=== PATIENT | male | born 1990 | race Two or more races ===

== ENCOUNTER 2020-03-28 16:18 | Emergency (ER) | payer MEDICAID ==
[~2020-03-28] VITALS: Ht 180.3 cm; Wt 109.0 kg
[2020-03-28 16:45] VITALS: BP 119/92
[2020-03-28] MEDS ORDERED: ASPIRIN/ACETAMINOPHEN/CAFFEINE 250/250/65MG TABLET PO STA (17:06)
[2020-03-28] MEDS ORDERED: CEFTRIAXONE SODIUM 250 MG/VIAL IM ONE (17:15)
[2020-03-28] MEDS ORDERED: AZITHROMYCIN 500 MG TABLET PO ONE (17:15)
[2020-03-28] MEDS ORDERED: LIDOCAINE HCL 1% 20ML VIAL (Pyxis) INJ INFIL ONE (17:45)
[2020-03-28 18:02] LABS: CLARITY URINE CLOUDY (CLEAR); COLOR URINE YELLOW (YELLOW); KETONES URINE TRACE (NEGATIVE); LEUKOCYTE ESTERASE URINE 3+ (NEGATIVE); NITRITE URINE NEGATIVE (NEGATIVE); OCCULT BLOOD URINE 1+ (NEGATIVE); PH URINE 6.5 (4.5-8.0); PROTEIN URINE TRACE (NEGATIVE)
[2020-03-28] MEDS ORDERED: DIPHENHYDRAMINE 25MG CAPSULE PO ONE (19:15)
== END 2020-03-28 19:39 | disposition home or self-care (01) ==
LOC: ER 16:18
DX: N34.2 Other urethritis (principal); G43.909 Migraine, unspecified, not intractable, without status migrainosus
CPT/HCPCS: 81003; 87086; 87491; 87591; 96372; 99284; J0696; J3490; Q0163